=== PATIENT | male | born 2000 | race Caucasian/White ===

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

== ENCOUNTER 2021-10-30 16:25 | Emergency (ER) | payer MEDICAID, SELFPAY ==
[2021-10-30 16:26] VITALS: BP 142/81; PULSE 79; RESP 16; TEMP 36.6; O2SAT 99; BMI 19.7
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
[2021-10-30] MEDS: Ibuprofen 200 MG Tablet 400 MG PO (17:49)
== END 2021-10-30 17:53 | disposition home or self-care (01) ==
PROVIDERS: Emergency Provider Emergency Medicine; Visit Provider Emergency Medicine
DX: S20.20XA Contusion of thorax, unspecified, initial encounter (principal); V47.5XXA Car driver injured in collision with fixed or stationary object in traffic accident, initial encounter; Y92.410 Unspecified street and highway as the place of occurrence of the external cause; U07.1 COVID-19
CPT/HCPCS: 71046; 93005; 99284

== ENCOUNTER 2022-12-21 18:44 | Emergency (ER) | payer MEDICAID, SELFPAY ==
[2022-12-21 18:45] VITALS: BP 140/70; PULSE 81; RESP 18; TEMP 36.6; O2SAT 98; BMI 21.7
--- NOTE | 2022-12-21 18:57 | EX.ED.DYSGE1 ---
HPI History of Present Illness Chief Complaint: Ear Problem Informant: patient Narrative Narrative: Patient presents with a left ear problem. Patient states he was cleaning his ears. He was using Q-tips. He now does not hear quite as well from the left. No bleeding. He has no pain. He tried to irrigate his hears at home but it did not help. He cannot tell me exactly when he did this or when this started. [facility] Medical History Asthma COVID-19 Home Medications NK 12/21/22 [History Last Taken Unknown] Allergy/AdvReac Type Severity Reaction Status Date / Time No Known Allergies Allergy Verified 12/21/22 19:07 Social History Smoking Status: Never smoker ROS ROS ED Constitutional Constitutional ED: Denies chills or fever(s) Eyes Eyes: Denies blurry vision ENT ENT ED: Reports other Details: See history of present illness ; Denies rhinorrhea or sore throat Respiratory/Chest Respiratory/Chest: Denies cough Gastrointestinal Gastrointestinal: Denies nausea or vomiting Neurologic Neurologic: Denies headache(s) Allergic/Immunologic Allergic/Immunologic ED: Denies urticaria EXAM Physical Exam Narrative Exam Narrative: General: Patient awake alert no acute distress sitting comfortably in bed. HEENT: No external trauma. The right TM does have a little bit of wax. But is not erythematous. The left TM I can see the top of about 60%. Its not red. There is no fluid that I can see in side the eardrum. There is no blood in the canal. There is some fluid and bubbles and slight wax at the inferior portion. This does limit visualization slightly. The canal itself is not inflamed. Neck is supple without lymphadenopathy Heart is regular. Lungs are clear and saturations are normal at 98%. Const Vital Signs: 12/21/22 18:45 Temperature 97.8 F Temperature Source Temporal Pulse Rate 81 Respiratory Rate 18 Blood Pressure 140/70 H Blood Pressure Mean 93 Pulse Ox 98 Oxygen Delivery Method Room Air MDM MDM MDM Narrative Medical decision making narrative: We irrigated the left ear. No large pieces of cerumen came out. We looked at it afterwards. There is a little bit of cerumen along the lower drum. But again the drum does not look like it has fluid behind it. There is no bleeding. No sign of perforation. Patient will try some Debrox type solution over the next few days. He can follow-up with ENT if he is not improving. Discharge Plan Triage Chief Complaint: Ear Problem ED Provider: Sandeep Espinal Dx/Rx/DC Orders Clinical Impression: Eardrum trauma, Cerumen in auditory canal on examination Instructions: Impacted Earwax Prescriptions: No Action NK Primary Care Provider: Care Physician,No Primary Referrals: Isaiah Camarillo MD [Med Staff - Courtesy Staff] - 3-5 Days if not improving Care Physician,No Primary [Primary Care Provider] - Disposition Disposition: Home, Self Care
== END 2022-12-21 19:59 | disposition home or self-care (01) ==
PROVIDERS: Emergency Provider Emergency Medicine; Visit Provider Emergency Medicine
DX: S09.91XA Unspecified injury of ear, initial encounter (principal); H61.22 Impacted cerumen, left ear; W44.8XXA Other foreign body entering into or through a natural orifice, initial encounter; J45.909 Unspecified asthma, uncomplicated
CPT/HCPCS: 99283

== ENCOUNTER 2023-12-28 09:49 | Emergency (ER) | payer SELFPAY ==
[2023-12-28 09:49] VITALS: BP 133/84; PULSE 84; RESP 16; TEMP 36.8; O2SAT 99; BMI 19.3
--- NOTE | 2023-12-28 10:09 | EX.ED.VIS.UR ---
HPI HPI - URI History of Present Illness Chief Complaint: Cold Sx Informant: patient Onset/Context/Timing Onset: Days (5) Context: Sudden Onset Timing: Continuous Quality: Tightness Location: Throat Worsened by: Swallowing Relieved by: - (Nothing) Associated Symptoms Associated Symptoms: Positive for Nasal Congestion, Shortness of Breath and Productive Cough (Green sputum); Negative for Headache, Sinus Pressure, Myalgias, Nausea, Vomiting, Diarrhea, Chest Pain, Nonproductive cough or Hemoptysis Narrative Narrative: Patient presents with cough and sore throat that has been getting worse over the past 5 days. Patient states that his throat feels tight. Patient states it is worse with swallowing. Patient states he has been taking Tylenol and ibuprofen with minimal relief. Patient admits to some nasal congestion and rhinorrhea. Patient states he is coughing up some green sputum. Patient admits to occasional shortness of breath. Patient denies any chest pain. Patient admits to subjective fever 2 days ago. Patient denies any chills. ROS ROS ED Constitutional Constitutional ED: Denies chills or fever(s) Eyes Eyes: Denies blurry vision or change in vision ENT ENT ED: Reports rhinorrhea and sore throat Cardiovascular Cardiovascular: Denies chest pain or palpitations Respiratory/Chest Respiratory/Chest: Denies cough or dyspnea Gastrointestinal Gastrointestinal: Denies nausea or vomiting Genitourinary Genitourinary ED: Denies dysuria or hematuria Musculoskeletal Musculoskeletal: Reports neck pain; Denies back pain Integumentary Denies abscess or rash Neurologic Neurologic: Denies headache(s) or weakness Allergic/Immunologic Allergic/Immunologic ED: Denies mouth swelling or urticaria PFSH PFS Medical History Dental caries COVID-19 Asthma Home Medications ?Medication ?Instructions ?Recorded ?Last Taken ?Type azithromycin 250 mg tablet 250 mg PO DAILY #4 TABLETS 12/28/23 Unknown Rx Allergy/AdvReac Type Severity Reaction Status Date / Time No Known Allergies Allergy Verified 12/28/23 09:49 Surgical History no surgical history no surgical history Social History Smoking Status: Never smoker EXAM Physical Exam Const Vital Signs: 12/28/23 09:49 12/28/23 10:15 Temperature 98.3 F Temperature Source Oral Pulse Rate 84 Respiratory Rate 16 Respiratory Effort Normal Non-Labored Respiratory Pattern Normal Blood Pressure 133/84 H Blood Pressure Mean 100 Pulse Ox 99 Oxygen Delivery Method Room Air Positive well nourished and well developed General Appearance ED: well developed and NAD HEENT Reports moist mucous membranes HEENT Narrative: Tympanic membranes are clear bilaterally. normocephalic and atraumatic Throat: posterior oropharynx abnormal Positive for cobblestoning and erythema Eyes PERRL and EOMs intact bilaterally Neck no lymphadenopathy, supple, no meningeal signs and no JVD General: Negative for anterior neck swelling Resp normal respiratory effort and clear to auscultation bilaterally Cardio Rate: regular rate Rhythm: regular rhythm GI non-tender and non-distended Palpation: soft Extremity normal to inspection and full ROM Neuro oriented x3, CN's II-XII intact bilaterally and no sensory deficits noted Sensorium / Orientation: alert Motor Exam: strength 5/5 throughout Psych mental status grossly normal MDM MDM MDM Narrative Medical decision making narrative: Differential diagnosis includes strep pharyngitis, viral pharyngitis, viral upper respiratory infection, pneumonia, and bronchitis. Chest x-ray will be obtained to assess for pneumonia and bronchitis. Rapid strep will be obtained to assess for strep pharyngitis. COVID-19, influenza, and RSV PCR will be obtained to assess for viral illness. Lab Data Attestation: I reviewed the patient's lab results. Lab results narrative: COVID-19 PCR was reviewed and was negative. Influenza PCR was reviewed and was negative for influenza A and influenza B. RSV PCR was reviewed and was negative. Rapid strep PCR was reviewed and was negative. Radiography Chest X-Ray - ED: 2 View, Read by ED Physician, Read by Radiologist and Left Infiltrate Diagnostic Testing: Clinical Impression(s) from Imaging Studies Chest X-Ray 12/28/23 10:40 IMPRESSION: Left lower lobe pneumonia. Electronically Signed: Deion Scott MD at 10:56 EDT , PA and lateral chest x-ray was obtained. There are 2 views. On my independent interpretation, lung gu show a left lower lobe infiltrate. There is normal cardiac silhouette. Bony thorax is normal. Radiologist also interpreted the x-ray and agrees. Treatment and Re-Evaluation Narrative: Patient was advised of his findings. Patient was given a dose of Zithromax here. Patient is given a prescription for Zithromax. Patient was instructed to follow-up with his primary care physician in 5 to 7 days. Patient was instructed to return if worse in any way. Patient understood and was agreeable with the plan. All questions were answered. Discharge Plan Triage Chief Complaint: Cold Sx ED Provider: Marty Laboy Dx/Rx/DC Orders Clinical Impression: Pneumonia, Elevated blood pressure reading Instructions: ED Pneumonia (Adult) Prescriptions: New azithromycin 250 mg tablet 250 mg PO DAILY Qty: 4 0RF Primary Care Provider: Care Physician,No Primary Referrals: Brian Child MD [Med Staff - Service Station Operator] - 5-7 Days Care Physician,No Primary [Primary Care Provider] - Print Language: [place] Disposition Disposition: Home, Self Care
--- NOTE | 2023-12-28 10:40 | RAD_ITS ---
STUDY: X-RAY CHEST REASON FOR EXAM: Male, 23 years old. Cough TECHNIQUE: Frontal and lateral views of the chest. COMPARISON: October 30, 2021 FINDINGS: There is mild left lower lung airspace opacity. There is no demonstrated pleural abnormality. Normal size heart. Normal mediastinum and sonny. Normal visualized pulmonary arteries. Normal visualized aortic arch and descending thoracic aorta. Normal visualized thoracic spine. Normal visualized ribs, clavicles, and shoulders. There is no demonstrated abnormality of the visualized soft tissue structures of the upper abdomen. RAD/Chest PA and Lateral IMPRESSION: Left lower lobe pneumonia. Electronically Signed: Deion Scott MD at 10:56 EDT ,
--- NOTE | 2023-12-28 11:34 | ED.RN ---
called lab to inquire about results.
[2023-12-28 12:09] VITALS: BP 110/85; PULSE 68; RESP 16; TEMP 36.1; O2SAT 99
[2023-12-28] MEDS: Azithromycin 250 MG Tablet 500 MG PO (12:09)
--- NOTE | 2023-12-28 13:56 | CM.ED ---
Social work Reason for referral: lack of PCP listed, self pay Referral source: case find This SW and MAX Crouch introduced selves and roles to patient sitting in his room. Patient stated he had been sick all week and decided to come in to the ED to get checked out. SW asked if patient had a PCP or a family care doctor and patient denied. SW stated that Dr. Brian Child had been listed as a family doctor, but patient denied seeing Dr. Child recently. Patient reports receiving insurance through his job at [employer] where he has reportedly been for two years, but patient reports never getting a card. Patient was open to receiving a brochure for local PCP's, [facility], and a Medicaid application. Patient avoided eye contact throughout most of the conversation. Rosalind Hollis, DIRECTOR FINANCIAL SYSTEMS, CLINICAL TRANSPLANT COORDINATOR
== END 2023-12-28 12:12 | disposition home or self-care (01) ==
PROVIDERS: Emergency Provider Emergency Medicine; Visit Provider Emergency Medicine
DX: J18.9 Pneumonia, unspecified organism (principal); R03.0 Elevated blood-pressure reading, without diagnosis of hypertension; Z86.16 Personal history of COVID-19
CPT/HCPCS: 71046; 87631; 87651; 99282